=== PATIENT | female | born 1980 | race Caucasian/White ===

== ENCOUNTER → 2023-11-28 12:32 | Outpatient (REF) | payer BC, SELFPAY | LOC: WDC 12:32 | PROVIDERS: ATTENDING PHYSICIAN Surgery | DX: R92.2 Inconclusive mammogram (principal) | CPT/HCPCS: 76641 ==

== ENCOUNTER → 2023-12-20 09:57 | Outpatient (REF) | payer BC, SELFPAY | LOC: PNTC 09:57 | PROVIDERS: ATTENDING PHYSICIAN Obstetrics & Gynecology | DX: O09.529 Supervision of elderly multigravida, unspecified trimester (principal) | CPT/HCPCS: 76816 ==

== ENCOUNTER → 2024-02-08 08:56 | Outpatient (REF) | payer BC, SELFPAY | LOC: WDC 08:56 | PROVIDERS: ATTENDING PHYSICIAN Surgery | DX: R92.2 Inconclusive mammogram (principal); Z80.3 Family history of malignant neoplasm of breast | CPT/HCPCS: 76641 ==

== ENCOUNTER 2024-03-12 05:25 | Inpatient (IN) | payer BC, SELFPAY ==
[2024-03-12 05:35] VITALS: BP 117/79; BMI 29.1
[2024-03-12 06:52] LABS: % Basophils 0.2 % (0-2); % Eosinophils 0.5 % (0-6); % Immature Granulocytes 0.5 % (0-0.5); % Lymphocytes 15.1 % (20.5-51.1); % Monocytes 5.6 % (1.7-9.3); % Neutrophils 78.1 % (42.2-75.2); Absolute Eosinophils 0.1 10^3/uL (0-0.7); Absolute Immature Granulocytes 0.1 10^3/uL (0-0.05); Absolute Lymphocytes 1.9 10^3/uL (1.2-3.4); Absolute Monocytes 0.7 10^3/uL (0.1-0.6); Absolute Neutrophils 9.9 10^3/uL (1.4-6.5); Hematocrit 32.9 % (37.0-47.0); Hemoglobin 11.7 g/dL (12.0-16.0); Mean Corp Hgb Conc. 35.6 g/dL (33.0-37.0); Mean Corpuscular Hgb 33.1 pg (27.0-31.0); Mean Corpuscular Volume 93.2 fL (81.0-99.0); Mean Platelet Volume 9.5 fL (7.4-10.4); Nucleated Red Blood Cells % 0 %; Platelet Count 258 10^3/uL (130-400); Red Blood Cell Count 3.53 10^6/uL (4.20-5.40); Red Cell Dist. Width 12.1 % (11.5-14.5); White Blood Cell Count 12.6 10^3/uL (4.8-10.8)
[2024-03-12] MEDS: LR 1000 IV ×2 (15:00→16:52)
[2024-03-12] MEDS: FENTANYL/BUPIVACAINE 100 EPIDURAL ×2 (15:47→23:21)
[2024-03-12] MEDS: SUBLIMAZE 100 MCG EPIDURAL (15:47)
[2024-03-13] MEDS: LR 1000 IV ×2 (04:16)
[2024-03-13] MEDS: FENTANYL/BUPIVACAINE 100 EPIDURAL (06:50)
[2024-03-13] MEDS: PITOCIN 30 UNITS/NSS 500 ML IV (09:05)
[2024-03-13] MEDS: BICITRA 30 ML PO (14:06)
[2024-03-13] MEDS: TYLENOL 1000 MG PO (14:08)
[2024-03-13] MEDS: ANCEF 10 IV (14:10)
[2024-03-13] MEDS: ZITHROMAX INFUSION 250 IV (15:35)
[2024-03-13] MEDS: TORADOL 15 MG IV (19:44)
[2024-03-13] MEDS: BENADRYL 25 MG PO (23:02)
[2024-03-14] MEDS: TORADOL 15 MG IV ×3 (01:45→14:22)
[2024-03-14 04:58] LABS: Hematocrit 28.6 % (37.0-47.0); Hemoglobin 10.1 g/dL (12.0-16.0); Mean Corp Hgb Conc. 35.3 g/dL (33.0-37.0); Mean Corpuscular Hgb 33.9 pg (27.0-31.0); Mean Platelet Volume 9.6 fL (7.4-10.4); Platelet Count 232 10^3/uL (130-400); Red Blood Cell Count 2.98 10^6/uL (4.20-5.40); Red Cell Dist. Width 12.6 % (11.5-14.5); White Blood Cell Count 20.7 10^3/uL (4.8-10.8)
[2024-03-14] MEDS: SYNTHROID 75 MCG PO (06:26)
--- NOTE | 2024-03-14 07:31 | W.PN.ANS.POP ---
Anesthesia Post Operative
- Anesthesia Post Op Note
Vital Signs Stable-See Nursing Note: Yes
Airway Patent: Yes
Adequate Pain Control: Yes
Change in Mental Status: No
Current Postoperative Nausea & Vomiting: No
Anesthesia Complications: No
General Anesthetic Recall: No
Unplanned Admission: No
Post Op Hydration Adequate: Yes
[2024-03-14] MEDS: TYLENOL 650 MG PO ×3 (08:06→21:13)
[2024-03-14] MEDS: SENOKOT-S 1 TABLET PO (08:07)
[2024-03-14] MEDS: MYLICON 80 MG PO ×2 (08:07→16:54)
[2024-03-14] MEDS: MOTRIN 600 MG PO (21:13)
[2024-03-15] MEDS: TYLENOL 650 MG PO ×3 (06:22→19:47)
[2024-03-15] MEDS: SYNTHROID 75 MCG PO (06:22)
[2024-03-15] MEDS: MOTRIN 600 MG PO ×3 (06:22→19:47)
[2024-03-15] MEDS: SENOKOT-S 1 TABLET PO (07:40)
[2024-03-15] MEDS: MYLICON 80 MG PO ×2 (07:40→19:48)
[2024-03-15] MEDS: FEOSOL 325 MG PO (07:40)
[2024-03-16] MEDS: TYLENOL 650 MG PO ×2 (04:07→10:17)
[2024-03-16] MEDS: MOTRIN 600 MG PO ×2 (04:07→10:17)
[2024-03-16] MEDS: SYNTHROID 75 MCG PO (06:08)
[2024-03-16] MEDS: FEOSOL 325 MG PO (10:17)
[2024-03-16] MEDS: MYLICON 80 MG PO (10:17)
[2024-03-16] MEDS: SENOKOT-S 1 TABLET PO (10:18)
--- NOTE | 2024-03-16 11:35 | W.DS.TRANS ---
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
-
Discharge Instructions:
Discharge Diagnosis/Procedures primary cs
Instructions:
Stand-Alone Forms:
Changes to Home Medications: No
Discharge Medications:
[facility]
levothyroxine 75 mcg tablet (Synthroid) 75 mcg PO DAILY Thyroid 03/12/24
prenat.vits,jesus alberto,meg-ljus-citlf 1 tab PO DAILY Supplement 03/12/24
ibuprofen 600 mg tablet 600 mg PO Q6HPRN PRN cramps #90 tabs 03/16/24
Home Medication Changes
Pending Results: No
Total time spent discharging patient (in min): 20
[2024-03-16 14:47] LABS: Syphilis/T. pallidum Ab Reflex Negative (Negative)
== END 2024-03-16 17:54 | disposition home or self-care (01) | DRG 788 ==
LOC: LDRP 05:25
PROVIDERS: Obstetrics & Gynecology; ADMITTING PHYSICIAN Obstetrics & Gynecology; FAMILY PHYSICIAN Family Medicine
PROC: 10907ZC Drainage of Amniotic Fluid, Therapeutic from Products of Conception, Via Natural or Artificial Opening (ICD-10-PCS; 2024-03-12)
PROC: 10D00Z1 Extraction of Products of Conception, Low, Open Approach (ICD-10-PCS; 2024-03-13)
DX: O99.284 Endocrine, nutritional and metabolic diseases complicating childbirth (principal); E03.9 Hypothyroidism, unspecified; Z3A.39 39 weeks gestation of pregnancy; Z37.0 Single live birth; O77.0 Labor and delivery complicated by meconium in amniotic fluid; O69.81X0 Labor and delivery complicated by cord around neck, without compression, not applicable or unspecified; O90.81 Anemia of the puerperium; D64.9 Anemia, unspecified; O62.1 Secondary uterine inertia; Z88.1 Allergy status to other antibiotic agents; Z88.2 Allergy status to sulfonamides; Z80.3 Family history of malignant neoplasm of breast; Z79.890 Hormone replacement therapy; Z87.891 Personal history of nicotine dependence; O66.5 Attempted application of vacuum extractor and forceps
CPT/HCPCS: 88307; 36415; 85025; 85027; 86780; 86850; 86900; 86901

== ENCOUNTER → 2025-02-25 12:57 | Outpatient (REF) | payer BC, SELFPAY | LOC: WDC 12:57 | PROVIDERS: ATTENDING PHYSICIAN Obstetrics & Gynecology Gynecology | DX: Z12.31 Encounter for screening mammogram for malignant neoplasm of breast (principal) | CPT/HCPCS: 77063; 77067 ==

== ENCOUNTER → 2025-07-01 13:36 | Outpatient (REF) | payer BC, SELFPAY | LOC: WDC 13:36 | PROVIDERS: ATTENDING PHYSICIAN Obstetrics & Gynecology Gynecology | DX: R92.2 Inconclusive mammogram (principal) | CPT/HCPCS: 76641 ==